=== PATIENT | male | born 1950 | race Caucasian/White ===

== ENCOUNTER 2019-12-04 13:35 | Outpatient (CLI) | payer MEDICARE, SELFPAY ==
--- NOTE | ~2019-12-04 | CT_ITS ---
EXAMINATION: CT brain wo con, CT facial bones wo con DATE: 12/04/2019 14:09 INDICATION: Fall with head injury including facial swelling and pain and ecchymoses at the right eye. TECHNIQUE: 1. Computed tomography (CT) of the head was performed without intravenous contrast. Sagittal and dustin nal reconstructions were performed. The mA was adjusted according to patient size. Iterative reconstr uction technique was employed. The dose-length product was 605.33 mGy-cm. 2. CT of the maxillofacial bones was performed without intravenous contrast. Sagittal and coronal rec onstructions were performed. Automated exposure control and iterative reconstruction technique were e mployed. The dose-length product was 523.69 mGy-cm. COMPARISON: None FINDINGS: Head: No calvarial fracture. No acute intracranial hemorrhage, acute infarction or abnormal extra axial flu id collection. There is mild scattered white matter hypoattenuation consistent with chronic small ves shane ischemic disease. Symmetric prominence of the sulci consistent with mild age-appropriate diffuse cerebral volume loss. Ventricles are normal and symmetric. No mass/mass effect. Mastoid air cells and middle ear cavities are clear. Maxillofacial bones Fracture involving the anterior, superior and lateral domingo of the right maxillary sinus. There is de pression of a fragment comprising a portion of the superior wall/inferior wall of the right orbit. Th ere does not appear to be herniation of the overlying inferior rectus muscle. The fracture line does extend to involve the infraorbital canal. There is blood partially filling the right maxillary sinus. There is preseptal swelling about the right orbit. The right globe appears intact with no retrobulba r inflammatory stranding. The zygomatic arches remain intact. There is abnormal contour to the nasal septum which is bowed towards the right anteriorly and towards the left with left-sided spike more posteriorly. No lucent fracture line or associated soft tissue s welling in this is likely either developmental or sequela of old trauma. No other maxillofacial fract ures identified. Left orbit is normal. Severe cervical spondylosis. 3 to 4 mm anterolisthesis C2 on C 3. C2 laminectomy and instrumented posterior spinal fusion with bilateral vertical dar and lateral ma ss screw fixations extending from C2 2 C6 along with anterior spinal fusion with interbody fusion dev ice at C5-C6. IMPRESSION: 1. Comminuted fracture involving the inferior wall of the right orbit and additionally the anterior a nd lateral domingo of the right maxillary sinus. 2. No calvarial fracture or acute intracranial process. 3. Age-related changes including mild diffuse volume loss and mild scattered white matter hypoattenua tion consistent with chronic small vessel ischemic disease. Reviewed, dictated and finalized at location A. IMPRESSION: 1. Comminuted fracture involving the inferior wall of the right orbit and addit ionally the anterior and lateral domingo of the right maxillary sinus. 2. No calvarial fracture or acute intracranial process. 3. Age-related changes including mild diffuse volume loss and mild scattered wh ite matter hypoattenuation consistent with chronic small vessel ischemic diseas e.
== END 2019-12-04 13:36 | disposition home or self-care (01) ==
LOC: ANHIMG 13:50
PROVIDERS: PCP Registered Nurse; Visit Provider Registered Nurse
DX: S05.11XA Contusion of eyeball and orbital tissues, right eye, initial encounter (principal); R22.0 Localized swelling, mass and lump, head; S00.83XA Contusion of other part of head, initial encounter; W19.XXXA Unspecified fall, initial encounter; S02.31XA Fracture of orbital floor, right side, initial encounter for closed fracture; S02.40CA Maxillary fracture, right side, initial encounter for closed fracture
CPT/HCPCS: 70450; 70486

== ENCOUNTER → 2023-03-10 15:58 | Outpatient (CLI) | payer MEDICARE, SELFPAY ==
--- NOTE | ~2023-03-10 | MR_ITS ---
EXAMINATION: MR lumbar spine wo con DATE: 03/10/2023 16:36 INDICATION: Lumbar radiculopathy TECHNIQUE: Magnetic resonance imaging (MRI) of the lumbar spine was performed without intravenous con trast. Sequences included sagittal T2-weighted FSE, sagittal T2-weighted FS FSE, sagittal T1-weighted FSE, and axial T2-weighted FSE. COMPARISON: None FINDINGS: 15 degrees upper lumbar levoscoliosis with compensatory dextrocurvature in the lower lumbar spine. 2 mm retrolisthesis L3 on L4. Vertebral body heights are normal. Severe left-sided disc height loss at L4-L5, severe right-sided disc height loss at and L1-L2 and L2-L3, each with associated fibrovascular degenerative endplate changes. Heterogeneous red and yellow marrow signal. The conus medullaris term inates at L1-L2. There is normal signal in the caudal spinal cord. Paravertebral soft tissues are unr emarkable. The following disc levels are specifically discussed: T12-L1: The disc does not extend beyond the endplate margin. There is mild left and mild to moderate right facet joint osteoarthritis. There is no neural foraminal stenosis. There is no central canal st enosis. L1-L2: Disc is bulging with annular fissure. There is mild left and moderate right facet joint osteoa rthritis. There is mild left and moderate right neural foraminal stenosis. There is moderate central canal stenosis. L2-L3: Disc is bulging with annular fissure. There is hypertrophy of the ligamentum flavum. There is moderate left and mild to moderate right facet joint osteoarthritis. There is moderate bilateral neur al foraminal stenosis. There is moderate to severe central canal stenosis. L3-L4: Disc is bulging with annular fissure and small central disc extrusion with disc material exten ding 5 mm caudal to the level of the superior endplate of L4. There is moderate to severe left and mo derate right facet joint osteoarthritis. There is mild to moderate bilateral neural foraminal stenosi s. There is mild to moderate central canal stenosis. L4-L5: Disc is bulging with annular fissure and prominent left paracentral to foraminal zone disc ext rusion with disc material extending up to 1 cm cephalad to the level of the inferior endplate of L4 a t the left paracentral region and 5 mm caudal to the superior endplate of L5 at the foraminal zone. T here is severe left and moderate to severe right facet joint osteoarthritis. There is moderate left a nd mild to moderate right neural foraminal stenosis. There is severe central canal stenosis along wit h prominent narrowing of the left lateral recess. Also contributing to the central canal stenosis is prominent epidural lipomatosis and hypertrophy of the ligamentum flavum. L5-S1: Disc is mildly bulging with annular fissure. There is severe bilateral facet joint osteoarthri tis. 12 mm synovial cyst at the posterior inferior margin of the right facet joint. There is mild rig ht and moderate to severe left neural foraminal stenosis. There is severe central canal stenosis resu lting primarily from epidural lipomatosis. IMPRESSION: 1. 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 Reviewed, dictated and finalized at location A.
== END ==
PROVIDERS: PCP Anesthesiology Pain Medicine; Visit Provider Anesthesiology Pain Medicine
DX: M47.26 Other spondylosis with radiculopathy, lumbar region (principal); M41.9 Scoliosis, unspecified
CPT/HCPCS: 72148

== ENCOUNTER → 2023-05-17 12:43 | Outpatient (CLI) | payer MEDICARE, SELFPAY ==
--- NOTE | ~2023-05-17 | MR_ITS ---
EXAMINATION: MR cervical spine wo/w con DATE: 05/17/2023 13:47 INDICATION: Cervical radicular pain TECHNIQUE: Magnetic resonance imaging (MRI) of the cervical spine was performed without intravenous c ontrast. Sequences included sagittal T2-weighted FSE, sagittal T2-weighted FS FSE, sagittal T1-weight ed FSE, axial T2-weighted FSE, and axial T1-weighted SE. Postcontrast sequences included sagittal T1- weighted FS FSE, and axial T1-weighted FS SE. COMPARISON: Cervical spine MR dated 04/02/2014 FINDINGS: There is reversal of the normal cervical lordosis in the upper cervical spine. Postoperative change o f the cervical spine including posterior decompression with C2-C6 laminectomies. Instrumented posteri or spinal fusion extending from C3 through T1 with bilateral vertical dar and screw fixation with martha red lateral mass screws at C2-C6 and bilateral pedicle screws at T1 which is new since the prior stud y. Anterior spinal fusion with interbody fusion device at C5-C6 and C6-C7. Anterior fusion without in strumentation at C4-C5. C2 is also fused without instrumentation to C3 with 3-4 mm anterolisthesis of C2 on C3. Chronic mild anterior wedging at T1. Remaining unfused upper thoracic vertebral body heigh ts are normal. Bone marrow signal intensity is normal. Mild disc height loss at the unfused C3-C4 a nd C7-T1 levels. Additional mild disc height loss at T2-T3 and T3-T4. Small foci of T2 hyperintensity at the left and right sides of the cord at the level of C5 which could be artifact related to metall ic magnetic field artifact resulting from the posterior fusion instrumentation however this also occu rs at the level of a previously severe central canal stenosis at the time of prior imaging suggesting possibility of focal chronic mild myelomalacia. Cord signal intensity is otherwise normal. Postopera tive scarring and multiple foci of likely postoperative related foci of susceptibility artifact in th e soft tissues posterior to the cervical spine. Cervical soft tissues are otherwise unremarkable. The re is prominent increased T2 signal at the left and right sides of the sharron. The following disc level s are specifically discussed: C2-C3: Disc space and bilateral facet joints are fused. Posterior decompression and posterior spinal fusion procedure. There is no neural foraminal stenosis. There is no central canal stenosis. C3-C4: The disc does not extend beyond the endplate margin. There is moderate uncovertebral joint ost eoarthritis. Posterior decompression and posterior spinal fusion. There is no neural foraminal stenos is. There is no central canal stenosis. C4-C5: Mild hypertrophic change along the posterior margin of the fused disc space. Posterior decompr ession and posterior spinal fusion. There is mild right neural foraminal stenosis. There is no centra l canal stenosis. C5-C6: Disc space is fused with small hypertrophic osteophytes at the left subarticular zone. Posteri or decompression and posterior spinal fusion. There is mild bilateral neural foraminal stenosis. Ther e is no central canal stenosis. C6-C7: Disc space is fused. Posterior decompression and posterior spinal fusion. There is mild bilate ral neural foraminal stenosis. There is no central canal stenosis. C7-T1: The disc does not extend beyond the endplate margin. There is mild bilateral uncovertebral petra nt osteoarthritis. Posterior spinal fusion. There is mild right neural foraminal stenosis. There is n o central canal stenosis. IMPRESSION: 1. Cervical posterior decompression with C2-C6 laminectomies and C2-T1 instrumented posterior spinal fusion. 2. Instrumented anterior spinal fusion at C5-C6 and C6-C7 with additional fusion without instrumentat ion at C2-C3 and C4-C5. 3. Mild spondylosis at the unfused levels with no central canal stenosis but mild neural foraminal st enosis at a few levels on the left and right. 4. Tiny foci of increased T2 signa
== END ==
PROVIDERS: PCP Nurse Practitioner Family; Visit Provider Nurse Practitioner Family
DX: M43.22 Fusion of spine, cervical region (principal); M43.02 Spondylolysis, cervical region; M48.02 Spinal stenosis, cervical region; R90.82 White matter disease, unspecified
CPT/HCPCS: 72156; A9577

== ENCOUNTER 2023-09-27 13:02 | Emergency (ER) | payer MEDICARE, SELFPAY ==
--- NOTE | ~2023-09-27 | XR_ITS ---
EXAMINATION: XR foot RT min 3V DATE: 09/27/2023 13:31 INDICATION: Right great toe injury. TECHNIQUE: 4 views of right foot were obtained. COMPARISON: None. FINDINGS: Bone alignment is normal. No fracture. There is severe osteoarthritis of first metatarsopha langeal joint and mild osteoarthritis of some of the interphalangeal joints. IMPRESSION: 1. Polyarticular osteoarthritis. Reviewed, dictated and finalized at location A.
[2023-09-27 13:16] VITALS: BP 117/73; PULSE 84; RESP 16; TEMP 36.6; O2SAT 98
--- NOTE | 2023-09-27 13:17 | ED.EXTPRO ---
HPI - Extremity Problem General Chief complaint: Extremity Problem,Nontraumatic Stated complaint: right foot swollen Time Seen by Provider: 09/27/23 13:20 Source: patient Mode of arrival: ambulatory Limitations: no limitations History of Present Illness HPI Narrative: Barrington is a 72-year-old male patient presenting to the clinic today with complaints of right great toe pain. He reports he stubbed his right great toe Monday night. Has bruising and swelling to the right foot. Patient does take aspirin and Eliquis. No history of gout. Related Data Home Medications Medication Instructions Recorded Confirmed atorvastatin 10 mg tablet 10 mg PO DAILY 03/25/21 03/25/21 metoprolol tartrate 50 mg tablet 50 mg PO DAILY 03/25/21 03/25/21 tamsulosin 0.4 mg capsule 0.4 mg PO DAILY 03/25/21 03/25/21 amlodipine 5 mg-benazepril 40 mg 1 cap PO DAILY 09/27/23 09/27/23 capsule apixaban 5 mg tablet (Eliquis) 5 mg PO BID 09/27/23 09/27/23 celecoxib 200 mg capsule 200 mg PO DAILY 09/27/23 09/27/23 Allergies Allergy/AdvReac Type Severity Reaction Status Date / Time No Known Allergies Allergy Verified 09/27/23 13:25 Review of Systems Review of Systems: Pertinent positives per HPI. Patient denies any fever, chills, rash, headache, visual changes, dizziness, cough, runny nose, sore throat, shortness of breath, chest pain, palpitations, nausea, vomiting, diarrhea, constipation, abdominal pain, or any urinary issues. [facility] Past Medical History Medical History Arthritis COPD (chronic obstructive pulmonary disease) Hypertension Osteoporosis Family History Family History Sibling Family history of arthritis Father Hypertension Mother Cancer Social History Social History Smoking status: Never smoker Alcohol intake: current Substance use: never Comments At the time of my signature, I reviewed and agree with the nursing past medical, surgical, social, and family history. There is no relevant family history pertinent to the patient complaint. Exam Narrative: General: Well-developed, well nourished, in no apparent distress Head: Normocephalic, atraumatic. Cardio: Regular rate and rhythm, s1 and s2 normal, no murmur appreciated. Resp: Clear to auscultation bilaterally, no rhonchi, rales, wheezing or rubs. Musculoskeletal: No deformity, swollen right foot with bruising noted to the base of the right great toe and 2nd toe, tender to palpation over the right great toe and 2nd toe, grossly normal range of motion, muscle strength strong and equal, peripheral pulse strong, no edema, no cyanosis, normal gait and station Course Course Emergency Course: Portions of this record may have been created with voice recognition software. Level of Care: Express Care Visit Vital Signs Vital signs: Vital Signs Temperature 36.6 C 09/27/23 13:16 Pulse Rate 84 09/27/23 13:16 Respiratory Rate 16 09/27/23 13:16 Blood Pressure 117/73 09/27/23 13:16 Pulse Oximetry 98 09/27/23 13:16 Oxygen Delivery Room Air 09/27/23 13:16 Temperature 36.6 C 09/27/23 13:16 Pulse Rate 84 09/27/23 13:16 Respiratory Rate 16 09/27/23 13:16 Blood Pressure 117/73 09/27/23 13:16 Pulse Oximetry 98 09/27/23 13:16 Oxygen Delivery Room Air 09/27/23 13:16 Vital signs reviewed MDM - Extremity (Nontraumatic) MDM Narrative Medical decision making narrative: At the time of visit patient is resting comfortably on the exam table. Patient appears to be nontoxic. Diagnostics: X-rays negative for any sign of fracture or malalignment. Does show polyarticular osteoarthritis Plan: X-ray of the foot shows osteoarthritis without sign of fracture. Suspect patient has a toe sprain/osteoarthritis. Does have bruising and swelling into the foot
== END 2023-09-27 13:50 | disposition home or self-care (01) ==
PROVIDERS: Emergency Provider Nurse Practitioner Family; PCP Registered Nurse
DX: S90.31XA Contusion of right foot, initial encounter (principal); S99.921A Unspecified injury of right foot, initial encounter; X58.XXXA Exposure to other specified factors, initial encounter; M19.071 Primary osteoarthritis, right ankle and foot; J44.9 Chronic obstructive pulmonary disease, unspecified; I10 Essential (primary) hypertension; M81.0 Age-related osteoporosis without current pathological fracture; Z79.01 Long term (current) use of anticoagulants
CPT/HCPCS: 73630; 99213; G0463

== ENCOUNTER 2023-10-10 15:15 | Outpatient (CLI) | payer MEDICARE, SELFPAY ==
--- NOTE | ~2023-10-10 | MR_ITS ---
EXAMINATION: MR thoracic spine wo con DATE: 10/10/2023 15:51 INDICATION: Back pain. Lumbar radiculopathy. TECHNIQUE: Magnetic resonance imaging (MRI) of the thoracic spine was performed without intravenous c ontrast. Sagittal localizer T1-weighted FSE of the cervical spine was obtained. Thoracic spine sequen surekha included sagittal T2-weighted FSE, sagittal T1-weighted FSE, sagittal T2-weighted FS FSE, and axi al T2-weighted FSE. COMPARISON: Thoracic spine MRI 04/02/2014 FINDINGS: There is 15 degrees levoscoliosis of lumbar spine. There are changes of anterior fusion pro cedures at C5-C6 and C6-C7. There are changes of posterior fusion procedure from C2 to T1. There is m ild chronic anterior wedging of T1 vertebral body. There is mildly decreased disc height from T3-T4 t hrough T10-T11. At T4-T5, there is a central extrusion with mild central canal stenosis and ventral i ndentation of the spinal cord. At T7-T8, there is a left central extrusion with mild central canal st enosis. At T8-T9, there is a left central extrusion with mild central canal stenosis. At T9-T10, ther e is a left central extrusion with mild central canal stenosis. At T10-T11, there is a left central e xtrusion with mild central canal stenosis. There is multilevel facet joint osteoarthritis, severe at many levels. On the right, there is mild neural foraminal stenosis at T1-T2, T2-T3, T3-T4, and T5-T6. On the left, there is mild neural foraminal stenosis at T1-T2, T2-T3, T4-T5, T10-T11, and T11-T12. O n the left, there is moderate neural foraminal stenosis at T3-T4. The spinal cord signal intensity is normal. The conus medullaris is at L1. IMPRESSION: 1. Moderate right neural foraminal stenosis at T3-T4. Otherwise mild thoracic spondylosis. Reviewed, dictated and finalized at location A. IMPRESSION: 1. Moderate right neural foraminal stenosis at T3-T4. Otherwise mild thoracic s pondylosis.
== END 2023-10-10 15:16 ==
LOC: MICIMG 15:16
PROVIDERS: PCP Nurse Practitioner Family; Visit Provider Nurse Practitioner Family
DX: M54.16 Radiculopathy, lumbar region (principal); M47.894 Other spondylosis, thoracic region
CPT/HCPCS: 72146

== ENCOUNTER 2023-11-30 14:30 | Outpatient (CLI) | payer MEDICARE, SELFPAY ==
--- NOTE | 2023-11-30 15:24 | ECG_ITS ---
SEE SCANNED COPY FOR CONFIRMED REPORT MTDD
[2023-11-30 15:34] LABS: Basophils Absolute Auto 0.1 K/mm3 (0.0-0.1); Basophils Percent Auto 1.1 % (0.2-1.2); Eosinophils Absolute Auto 0.1 K/mm3 (0-0.3); Eosinophils Percent Auto 1.1 % (0-4.4); Hematocrit 38.8 % (42.0-52.0); Hemoglobin 13.3 g/dL (14.0-18.0); Immature Granulocyte Absolute 0.12 K/mm3 (0.00-0.031); Immature Granulocyte Percent A 1.8 % (0-0.5); Lymphocytes Absolute Auto 0.91 K/mm3 (0.9-3.2); Mean Corpuscular HGB Conc 34.3 g/dl (32-36); Mean Corpuscular Hemoglobin 33.2 pg (26-34); Mean Corpuscular Volume 96.8 fl (80-100); Mean Platelet Volume 8.1 fl (7.4-10.4); Monocytes Absolute Auto 0.6 K/mm3 (0.1-0.6); Monocytes Percent Auto 9.7 % (2.6-8.5); Neutrophils Absolute Auto 4.7 K/mm3 (1.3-6.7); Neutrophils Percent Auto 72.3 % (45.5-73.1); Platelet Count Result 195 k/mm3 (150-375); Red Blood Count 4.01 M/mm3 (4.6-6.20); Red Cell Distribution Width 15.8 % (11.5-14.5); White Blood Count 6.5 K/mm3 (4.5-10.0)
[2023-11-30 16:16] LABS: Erythrocyte Sedimentation Rate 25 mm/hr (0-20)
[2023-11-30 17:18] LABS: Alanine Aminotransferase 15 U/L (6-50); Alkaline Phosphatase 80 U/L (38-126); Anion Gap 6 mmol/L (4-12); Aspartate Amino Transferase 28 U/L (17-59); Bilirubin,Total 0.6 mg/dL (0.2-1.3); Blood Urea Nitrogen 12 mg/dL (9-20); CRP 0.6 mg/dL (<1.0); Carbon Dioxide 26 mmol/L (22-30); Chloride 93 mmol/L (98-107); Estimated Glomerular Filt Rate > 60; Glucose 116 mg/dL (65-110); Potassium 4.5 mmol/L (3.4-5.0); Sodium 125 mmol/L (137-145)
[2023-12-04 02:14] LABS: Testosterone Total 215 ng/dL (250-1100)
== END 2023-11-30 14:31 | disposition home or self-care (01) ==
PROVIDERS: PCP Registered Nurse; Visit Provider Nurse Practitioner Family
DX: Z79.899 Other long term (current) drug therapy (principal); Z01.818 Encounter for other preprocedural examination
CPT/HCPCS: 36415; 80053; 84403; 85025; 85652; 86140; 93005

== ENCOUNTER 2024-06-10 13:43 | Emergency (ER) | payer MEDICARE, SELFPAY ==
[2024-06-10 13:52] VITALS: BP 140/77; PULSE 43; RESP 16; TEMP 36.4; O2SAT 97
--- NOTE | 2024-06-10 13:56 | ED.GENADULT ---
HPI - General Adult General Chief complaint: Skin/Abscess/Foreign Body Stated complaint: left toe tender Time Seen by Provider: 06/10/24 13:56 Source: patient, RN notes reviewed and old records reviewed Mode of arrival: ambulatory Limitations: no limitations History of Present Illness HPI narrative: 73-year-old male presents to the [facility] with redness, tenderness to the dorsal aspect left 2nd toe for 2 days. Patient states he had an area that drained. No fluctuance or drainage noted this time. Onset (ago): day(s) (2) Related Data Home Medications Medication Instructions Recorded Confirmed atorvastatin 10 mg tablet 10 mg PO DAILY 03/25/21 06/10/24 metoprolol tartrate 50 mg tablet 50 mg PO DAILY 03/25/21 06/10/24 tamsulosin 0.4 mg capsule 0.4 mg PO DAILY 03/25/21 06/10/24 amlodipine 5 mg-benazepril 40 mg 1 cap PO DAILY 09/27/23 06/10/24 capsule apixaban 5 mg tablet (Eliquis) 5 mg PO BID 09/27/23 06/10/24 celecoxib 200 mg capsule 200 mg PO DAILY 09/27/23 06/10/24 Allergies Allergy/AdvReac Type Severity Reaction Status Date / Time No Known Allergies Allergy Verified 06/10/24 13:51 Review of Systems Review of Systems: All systems reviewed & are unremarkable except as noted in HPI and below Constitutional: Constitutional: Reports no additional constitutional complaints ENT: Reports system reviewed and no additional complaints, except as documented Cardiovascular: Cardiovascular: Reports no additional cardiovascular complaints, Denies chest pain and Denies dyspnea Respiratory: Respiratory: Reports no additional respiratory complaints, Denies chest congestion, Denies cough and Denies dyspnea Gastrointestinal: Gastrointestinal: Reports no additional gastrointestinal complaints, Denies abdominal pain, Denies nausea and Denies vomiting Musculoskeletal: Musculoskeletal: Reports as per HPI Integumentary/Breasts: Skin/Breast: Reports as per HPI PMFSH Past Medical History Medical History Arthritis COPD (chronic obstructive pulmonary disease) Hypertension Osteoporosis Family History Family History Sibling Family history of arthritis Father Hypertension Mother Cancer Social History Social History (Reviewed 11/25/24 @ 19:19 by ANDREW Walter Smoking status: Never smoker Alcohol intake: current Substance use: never Comments At the time of my signature, I reviewed and agree with the nursing past medical, surgical, social, and family history. There is no relevant family history pertinent to the patient complaint. Exam Const: General: cooperative, comfortable, no acute distress, well developed, alert, ill appearing chronically; not acutely and well nourished Nutritional Appearance: well nourished Orientation/consciousness: patient oriented x3 Limitations: no limitations HENMT: Head: normal to inspection Ears: hearing grossly normal bilaterally and external ears normal Face/Nose/Sinus: Normal external nose present, normal facial exam and face symmetric Face and sinus: normal facial exam and face symmetric Eyes: General: appearance normal, both eyes and all related structures Alignment and Position: alignment normal Periorbital: periorbital findings normal Neck: Neck: normal visual inspection, full ROM, no lymphadenopathy and no meningeal signs Chest: Chest palpation & inspection: normal inspection of the chest Resp: Effort & Inspection: normal respiratory effort and able to speak in complete sentences Auscultation: clear to auscultation bilaterally, no crackles, no rales, no rhonchi and no wheezes Cardio: Rate: regular rate Skin: General skin exam: normal color and no rashes or lesions noted Lesions: no lesions Rashes: no rashes Wounds: no wounds Other: Erythema, increased room with left 2nd toe dorsal aspect. Not circumferential. No signs of an abscess. No streaking Neuro: General: patient oriented x3, gait normal, tone normal, moves all extremities and no meningeal signs Cognition (Neuro): normal cognition Speech: normal speech Gait exam (Neuro): Normal gait present Extrem: General: normal to inspection, full ROM, capillary refill normal and normal gait Psych: Appearance: grossly normal and well kempt Mental Status: mental status grossly normal Speech and movement: Normal speech and movement present and Clear speech present Affect: normal affect Attitude: cooperative Course Course Level of Care: Express Care Visit Vital Signs Vital signs: Vital Signs Temperature 97.5 F L 06/10/24 13:52 Pulse Rate 43 L 06/10/24 13:52 Respiratory Rate 16 06/10/24 13:52 Blood Pressure 140/77 06/10/24 13:52 Pulse Oximetry 97 06/10/24 13:52 Oxygen Delivery Room Air 06/10/24 13:52 Temperature 97.5 F L 06/10/24 13:52 Pulse Rate 43 L 06/10/24 13:52 Respiratory Rate 16 06/10/24 13:52 Blood Pressure 140/77 06/10/24 13:52 Pulse Oximetry 97 06/10/24 13:52 Oxygen Delivery Room Air 06/10/24 13:52 Reviewed Medical Decision Making MDM Narrative Medical decision making narrative: Patient sitting comfortably in exam room. Nontoxic, vitals stable. Patient in no acute distress Patient presents for erythema to the 2nd right toe left foot just dorsal aspect. Not circumferential. Area appears to be cellulitic. Discussed treatment plan. Discussed strict signs and symptoms go the emergency room patient verbalized understanding. Patient appropriate for outpatient treatment and follow-up Discharge instructions reviewed with patient, as well as provided in writing per nursing staff. The instructions also include specific and strict return/GO TO THE ER as well as f/u information. All questions have been answered, and the patient deny any further questions with discharge and discharge plan. Some parts of this dictation were generated by voice recognition software and may contain typographical and/or grammatical inaccuracies. Differential Diagnosis Differential Diagnosis: Paronychia, felon, cellulitis Medical Records Medical records reviewed: Yes I reviewed the external patient's medical records. Vital Signs Vital Signs: Vital Signs Temperature 97.5 F L 06/10/24 13:52 Pulse Rate 43 L 06/10/24 13:52 Respiratory Rate 16 06/10/24 13:52 Blood Pressure 140/77 06/10/24 13:52 Pulse Oximetry 97 06/10/24 13:52 Oxygen Delivery Room Air 06/10/24 13:52 Temperature 97.5 F L 06/10/24 13:52 Pulse Rate 43 L 06/10/24 13:52 Respiratory Rate 16 06/10/24 13:52 Blood Pressure 140/77 06/10/24 13:52 Pulse Oximetry 97 06/10/24 13:52 Oxygen Delivery Room Air 06/10/24 13:52 Reviewed Lab Data Lab results reviewed: Yes I reviewed the patient's lab results. Labs: Reviewed Critical Care Time Critical Care Time Critical Care Time: No Discharge Plan Discharge Clinical Impression: Cellulitis of second toe, left Patient Disposition: Home, Self-Care Condition: Stable Instructions: Antibiotic Form, Cellulitis (ED) Additional Instructions: Wash area twice daily with warm soapy water, pat dry. Take the antibiotic as prescribed. While on the antibiotic it is important that you take a probiotic or eat a your today to help reduce side effects. Follow-up with your primary care provider If for some reason your symptoms get worse please go directly to the nearest emergency room Patient Language: Sami Prescriptions: New clindamycin HCl 300 mg capsule 300 mg PO TID 7 Days Qty: 21 0RF Rx Instructions: TAKE WITH 150 MG No Action celecoxib 200 mg capsule 200 mg PO DAILY amlodipine-benazepril 5-40 mg capsule 1 cap PO DAILY Eliquis 5 mg tablet 5 mg PO BID tamsulosin 0.4 mg capsule 0.4 mg PO DAILY metoprolol tartrate 50 mg tablet 50 mg PO DAILY atorvastatin 10 mg tablet 10 mg PO DAILY Follow-up/Referrals: Isaura,DIDIER Andrews [Primary Care Provider] - 2 Weeks ([facility] care follow up ) Time of Disposition: 14:07
== END 2024-06-10 14:10 | disposition home or self-care (01) ==
PROVIDERS: Emergency Provider Nurse Practitioner; PCP Registered Nurse
DX: L03.032 Cellulitis of left toe (principal); J44.9 Chronic obstructive pulmonary disease, unspecified; I10 Essential (primary) hypertension; M19.90 Unspecified osteoarthritis, unspecified site; M81.0 Age-related osteoporosis without current pathological fracture; Z79.01 Long term (current) use of anticoagulants
CPT/HCPCS: 99213; G0463

== ENCOUNTER 2024-08-07 13:45 | Emergency (ER) | payer MEDICARE, SELFPAY ==
[2024-08-07 13:56] VITALS: BP 145/98; PULSE 72; RESP 14; TEMP 36.2; O2SAT 99
--- NOTE | 2024-08-07 14:01 | ED_ITS ---
HPI - Extremity Injury (Upper) General Chief Complaint: Extremity Injury, Upper Stated Complaint: Left Hand Swollen Time Seen by Provider: 08/07/24 14:01 Source: patient, RN notes reviewed and old records reviewed Mode of arrival: ambulatory Limitations: no limitations History of Present Illness HPI narrative: Patient presents with complaints of left hand pain and swelling. He reports he had some pain yesterday, but upon awakening this morning noted that he had associated redness and swelling. He denies any injury or trauma. He has not taken anything for his symptoms. He does retain full range of motion. Redness is most apparent at the base of the thumb, there is some associated warmth Related Data Home Medications ?Medication ?Instructions ?Recorded ?Confirmed ?Last Taken ?Type atorvastatin 10 mg tablet 10 mg PO DAILY 03/25/21 06/10/24 Unknown History metoprolol tartrate 50 mg tablet 50 mg PO DAILY 03/25/21 06/10/24 Unknown History tamsulosin 0.4 mg capsule 0.4 mg PO DAILY 03/25/21 06/10/24 Unknown History amlodipine 5 mg-benazepril 40 mg 1 cap PO DAILY 09/27/23 06/10/24 Unknown History capsule apixaban 5 mg tablet (Eliquis) 5 mg PO BID 09/27/23 06/10/24 Unknown History celecoxib 200 mg capsule 200 mg PO DAILY 09/27/23 06/10/24 Unknown History Allergies Allergy/AdvReac Type Severity Reaction Status Date / Time No Known Allergies Allergy Verified 08/07/24 13:55 Review of Systems 2 Review of Systems: All systems reviewed & are unremarkable except as noted in HPI and below Constitutional: Constitutional: Reports no additional constitutional complaints ENT: Reports system reviewed and no additional complaints, except as documented Cardiovascular: Cardiovascular: Reports no additional cardiovascular complaints Respiratory: Respiratory: Reports no additional respiratory complaints Gastrointestinal: Gastrointestinal: Reports no additional gastrointestinal complaints Musculoskeletal: Musculoskeletal: Reports no additional musculoskeletal complaints and Reports as per HPI Integumentary/Breasts: Skin/Breast: Reports system reviewed and no additional complaints, except as docu and Reports as per HPI PMFSH Past Medical History Medical History Arthritis COPD (chronic obstructive pulmonary disease) Hypertension Osteoporosis Family History Family History Sibling Family history of arthritis Father Hypertension Mother Cancer Social History Social History Smoking status: Never smoker Alcohol intake: current Substance use: never Comments At the time of my signature, I reviewed and agree with the nursing past medical, surgical, social, and family history. There is no relevant family history pertinent to the patient complaint. Exam 2 Const: General: cooperative, no acute distress, alert and awake O rientation/consciousness: oriented to person, oriented to place and oriented to time HENMT: Head: normal to inspection Resp: Effort & Inspection: normal respiratory effort and able to speak in complete sentences Auscultation: clear to auscultation bilaterally, no crackles, no rales, no rhonchi and no wheezes Cardio: Palpation: normal PMI Rate: regular rate Rhythm: regular rhythm Heart sounds: S1 normal heart sound present and S2 normal heart sound present Neuro: General: oriented to person, oriented to place and oriented to time Cranial nerves: Yes CN's II-XII intact bilaterally Extrem: Left upper extremity: full ROM and normal capillary refill Hand/finger images: 1. Tenderness, redness, warmth. No obvious openings in the skin Psych: Appearance: grossly normal Thought process: Normal thought process present Insight: Good insight present (Psych) Judgement: Good judgement present (Psych) Course Course Level of Care: Express Care Visit Vital Signs Vital signs: Vital Signs Temperature 97.1 F L 08/07/24 13:56 Pulse Rate 72 08/07/24 13:56 Respiratory Rate 14 08/07/24 13:56 Blood Pressure 145/98 H 08/07/24 13:56 Pulse Oximetry 99 08/07/24 13:56 Oxygen Delivery Room Air 08/07/24 13:56 Temperature 97.1 F L 08/07/24 13:56 Pulse Rate 72 08/07/24 13:56 Respiratory Rate 14 08/07/24 13:56 Blood Pressure 145/98 H 08/07/24 13:56 Pulse Oximetry 99 08/07/24 13:56 Oxygen Delivery Room Air 08/07/24 13:56 Reviewed MDM - Extremity Injury (Upper) MDM Narrative Medical decision making narrative: Patient with tenderness, warmth, redness to face of the left thumb. No obvious opening in this scan. Symptoms of cellulitis versus gout. Will start on p.o. antibiotic therapy and steroid burst. Strict emergency department precautions discussed with patient. Discharge instructions reviewed with patient, as well as provided in writing per nursing staff. The instructions also include specific and strict return/GO TO THE ER as well as f/u information. All questions have been answered, and the patient deny any further questions with discharge and discharge plan. Some parts of this dictation were generated by voice recognition software and may contain typographical and/or grammatical inaccuracies. Differential Diagnosis Differential diagnosis: Likely other (Cellulitis, gout, musculoskeletal pain) Medical Records Attestation: I reviewed the patient's medical records. Discharge Plan Discharge Clinical Impression: Cellulitis Qualifiers: Site of cellulitis: extremity Site of cellulitis of extremity: upper extremity Laterality: left Qualified Code(s): L03.114 - Cellulitis of left upper limb Patient Disposition: Home, Self-Care Condition: Stable Instructions: Cellulitis (ED), Gout (ED) Additional Instructions: Take medications as prescribed. Follow with primary care provider. Emergency department for new or worse symptoms Patient Language: Puerto Rican Prescriptions: New doxycycline hyclate 100 mg capsule 100 mg PO BID Qty: 20 0RF prednisone 50 mg tablet 50 mg PO DAILY Qty: 5 0RF No Action celecoxib 200 mg capsule 200 mg PO DAILY amlodipine-benazepril 5-40 mg capsule 1 cap PO DAILY Eliquis 5 mg tablet 5 mg PO BID clindamycin HCl 300 mg capsule 300 mg PO TID 7 Days Qty: 21 0RF Rx Instructions: TAKE WITH 150 MG tamsulosin 0.4 mg capsule 0.4 mg PO DAILY metoprolol tartrate 50 mg tablet 50 mg PO DAILY atorvastatin 10 mg tablet 10 mg PO DAILY Follow-up/Referrals: Isaura,DIDIER Andrews [Primary Care Provider] - 1 Week Time of Disposition: 14:13
== END 2024-08-07 14:20 | disposition home or self-care (01) ==
PROVIDERS: Emergency Provider Nurse Practitioner Family; PCP Registered Nurse
DX: L03.114 Cellulitis of left upper limb (principal); I10 Essential (primary) hypertension; J44.9 Chronic obstructive pulmonary disease, unspecified; M19.90 Unspecified osteoarthritis, unspecified site; M81.0 Age-related osteoporosis without current pathological fracture; Z79.01 Long term (current) use of anticoagulants
CPT/HCPCS: 99213; G0463

== ENCOUNTER 2024-11-12 13:50 | Emergency (ER) | payer MEDICARE, SELFPAY ==
--- NOTE | ~2024-11-12 | XR_ITS ---
XR finger 1st LT min 2V Ordering provider: Ashlie Lee APRN History: . pain and swelling LT 1st mcp joint x 1 day NO INJURY . Comparison: None. FINDINGS: BONES: No acute fracture or dislocation. JOINT SPACES: Slight widening of the first carpometacarpal joint is noted. Osteoarthritic changes of the same joint is noted. Small bony fragments are seen in the area. SOFT TISSUES: Normal. IMPRESSION: No acute osseous abnormality. Subluxation is seen in the first carpometacarpal joint. Small bony fragments are seen in the area. Cl inical correlation advised Reviewed, dictated and finalized at location A. IMPRESSION: No acute osseous abnormality. Subluxation is seen in the first carpometacarpal joint. Small bony fragments ar e seen in the area. Clinical correlation advised
[2024-11-12 13:56] VITALS: BP 162/74; PULSE 74; RESP 16; TEMP 36.5; O2SAT 100
--- NOTE | 2024-11-12 14:01 | ED_ITS ---
HPI - General Adult General Chief complaint: Extremity Problem,Nontraumatic Stated complaint: left thumb painful Time Seen by Provider: 11/12/24 14:06 Source: patient, RN notes reviewed and old records reviewed Mode of arrival: ambulatory Limitations: no limitations History of Present Illness HPI narrative: 74-year-old male presents to the [facility] with left thumb pain that started yesterday. Swelling is noted. Decreased range of motion secondary to pain. Has history of arthritis. No treatment prior to arrival. Related Data Home Medications ?Medication ?Instructions ?Recorded ?Confirmed ?Last Taken ?Type atorvastatin 10 mg tablet 10 mg PO DAILY 03/25/21 06/10/24 Unknown History metoprolol tartrate 50 mg tablet 50 mg PO DAILY 03/25/21 06/10/24 Unknown History tamsulosin 0.4 mg capsule 0.4 mg PO DAILY 03/25/21 06/10/24 Unknown History amlodipine 5 mg-benazepril 40 mg 1 cap PO DAILY 09/27/23 06/10/24 Unknown History capsule apixaban 5 mg tablet (Eliquis) 5 mg PO BID 09/27/23 06/10/24 Unknown History celecoxib 200 mg capsule 200 mg PO DAILY 09/27/23 06/10/24 Unknown History Allergies Allergy/AdvReac Type Severity Reaction Status Date / Time No Known Allergies Allergy Verified 11/12/24 13:54 Review of Systems Review of Systems: All systems reviewed & are unremarkable except as noted in HPI and below Constitutional: Constitutional: Reports no additional constitutional complaints ENT: Reports system reviewed and no additional complaints, except as documented Cardiovascular: Cardiovascular: Reports no additional cardiovascular complaints, Denies chest pain and Denies dyspnea Respiratory: Respiratory: Reports no additional respiratory complaints, Denies chest congestion, Denies cough and Denies dyspnea Musculoskeletal: Musculoskeletal: Reports as per HPI Integumentary/Breasts: Skin/Breast: Reports system reviewed and no additional complaints, except as docu PMFSH Past Medical History Medical History Arthritis COPD (chronic obstructive pulmonary disease) Hypertension Osteoporosis Family History Family History Sibling Family history of arthritis Father Hypertension Mother Cancer Social History Social History Smoking status: Never smoker Alcohol intake: current Substance use: never Comments At the time of my signature, I reviewed and agree with the nursing past medical, surgical, social, and family history. There is no relevant family history pertinent to the patient complaint. Exam Const: General: cooperative, healthy appearing, comfortable, no acute distress, well developed, alert and well nourished Nutritional Appearance: well nourished Orientation/consciousness: patient oriented x3 Limitations: no limitations HENMT: Head: normal to inspection Eyes: General: appearance normal, both eyes and all related structures Alignment and Position: alignment normal Neck: Neck: normal visual inspection, full ROM, no lymphadenopathy and no meningeal signs Chest: Chest palpation & inspection: normal inspection of the chest Resp: Effort & Inspection: normal respiratory effort and able to speak in complete sentences Auscultation: clear to auscultation bilaterally, no crackles, no rales, no rhonchi and no wheezes Cardio: Rate: regular rate Skin: General skin exam: normal color and no rashes or lesions noted Neuro: General: patient oriented x3, gait normal, moves all extremities and no meningeal signs Cognition (Neuro): normal cognition Speech: normal speech Gait exam (Neuro): Normal gait present Extrem: General: normal to inspection, full ROM, capillary refill normal and normal gait Left upper extremity: hand tenderness of the thumb at the MCP joint, vascular exam radial pulse present, abnormal ROM of finger pain with active ROM and pain with passive ROM and swelling of the thumb at the MCP joint; no unusual warmth, no abrasions, no lacerations and no ecchymosis Psych: Appearance: grossly normal and well kempt Mental Status: mental status grossly normal Speech and movement: Normal speech and movement present and Clear speech present Affect: normal affect Attitude: cooperative Course Course Level of Care: Express Care Visit Vital Signs Vital signs: Vital Signs Temperature 97.7 F 11/12/24 13:56 Pulse Rate 74 11/12/24 13:56 Respiratory Rate 16 11/12/24 13:56 Blood Pressure 162/74 H 11/12/24 13:56 Pulse Oximetry 100 11/12/24 13:56 Oxygen Delivery Room Air 11/12/24 13:56 Temperature 97.7 F 11/12/24 13:56 Pulse Rate 74 11/12/24 13:56 Respiratory Rate 16 11/12/24 13:56 Blood Pressure 162/74 H 11/12/24 13:56 Pulse Oximetry 100 11/12/24 13:56 Oxygen Delivery Room Air 11/12/24 13:56 Reviewed Medical Decision Making MDM Narrative Medical decision making narrative: Patient sitting in exam room. Patient is nontoxic, vitals except blood pressure are stable. Blood pressure mildly elevated most likely secondary to pain. Patient presents with pain and swelling to the base of the left thumb at the MCP. X-ray shows significant arthritis. Patient does have a decreased range of motion but able flex and extend slightly. Patient appropriate for outpatient treatment and follow-up. Discharge instructions reviewed with patient, as well as provided in writing per nursing staff. The instructions also include specific and strict return/GO TO THE ER as well as f/u information. All questions have been answered, and the patient deny any further questions with discharge and discharge plan. Some parts of this dictation were generated by voice recognition software and may contain typographical and/or grammatical inaccuracies. Differential Diagnosis Differential Diagnosis: Arthritis, gout, Medical Records Medical records reviewed: Yes I reviewed the external patient's medical records. Vital Signs Vital Signs: Vital Signs Temperature 97.7 F 11/12/24 13:56 Pulse Rate 74 11/12/24 13:56 Respiratory Rate 16 11/12/24 13:56 Blood Pressure 162/74 H 11/12/24 13:56 Pulse Oximetry 100 11/12/24 13:56 Oxygen Delivery Room Air 11/12/24 13:56 Temperature 97.7 F 11/12/24 13:56 Pulse Rate 74 11/12/24 13:56 Respiratory Rate 16 11/12/24 13:56 Blood Pressure 162/74 H 11/12/24 13:56 Pulse Oximetry 100 11/12/24 13:56 Oxygen Delivery Room Air 11/12/24 13:56 Reviewed Lab Data Lab results reviewed: Yes I reviewed the patient's lab results. Labs: Reviewed Imaging Data Radiologist's impression: XR finger 1st LT min 2V Ordering provider: Ashlie Lee APRN History: . pain and swelling LT 1st mcp joint x 1 day NO INJURY . Comparison: None. FINDINGS: BONES: No acute fracture or dislocation. JOINT SPACES: Slight widening of the first carpometacarpal joint is noted. Osteoarthritic changes of the same joint is noted. Small bony fragments are seen in the area. SOFT TISSUES: Normal. IMPRESSION: No acute osseous abnormality. Subluxation is seen in the first carpometacarpal joint. Small bony fragments are seen in the area. Clinical correlation advised Critical Care Time Critical Care Time Critical Care Time: No Discharge Plan Discharge Clinical Impression: Gout, Gouty arthritis Patient Disposition: Home Condition: Stable Instructions: Antibiotic Form, Gout (ED) Additional Instructions: Follow-up with your primary care provider within the next 3-4 days for recheck of your thumb. Your blood pressure was 162/74. New or worsening symptoms go directly to the emergency room Patient Language: Spanish Prescriptions: New prednisone 50 mg tablet 50 mg PO DAILY Qty: 5 0RF No Action celecoxib 200 mg capsule 200 mg PO DAILY amlodipine-benazepril 5-40 mg capsule 1 cap PO DAILY Eliquis 5 mg tablet 5 mg PO BID tamsulosin 0.4 mg capsule 0.4 mg PO DAILY metoprolol tartrate 50 mg tablet 50 mg PO DAILY atorvastatin 10 mg tablet 10 mg PO DAILY Follow-up/Referrals: Isaura,DIDIER Andrews [Primary Care Provider] - 1 Week (express care follow up ) Time of Disposition: 14:53
== END 2024-11-12 15:00 | disposition home or self-care (01) ==
PROVIDERS: Emergency Provider Nurse Practitioner; PCP Registered Nurse
DX: M10.9 Gout, unspecified (principal); I10 Essential (primary) hypertension; J44.9 Chronic obstructive pulmonary disease, unspecified; M19.90 Unspecified osteoarthritis, unspecified site; M81.0 Age-related osteoporosis without current pathological fracture
CPT/HCPCS: 73140; 99213; G0463